=== PATIENT | male | born 1945 | race Caucasian/White ===

== ENCOUNTER 2023-06-30 07:31 | Day surgery (SDC) | payer MEDICARE, BC ==
[~2023-06-30] VITALS: Ht 177.8 cm; Wt 84.8 kg
[~2023-06-30 07:31] MED LIST: ASCORBIC ACID PO; CHOLECALCIFEROL PO; Cyclobenzaprine10 MG PO; DOCOSAHEXAENOIC ACID PO; FLONASE ALLERG9.9 M2; GENICIN500 M1 PO; HYDCHL25 PO; Lactated Ringer's 1,000 ML IV ONE; METAMUCIL POWD798 GM PO; Vitamin B-12250 MCG PO; propofoL 50 ML IV ONE
[2023-06-30] MEDS ORDERED: Lactated Ringer's 1,000 ML IV ONE (09:06)
[2023-06-30 10:33] VITALS: BP 103/59
== END 2023-06-30 10:10 | disposition home or self-care (01) ==
LOC: ORSCSDS 07:31
PROVIDERS: Surgery
PROC: 0DJD8ZZ Inspection of Lower Intestinal Tract, Via Natural or Artificial Opening Endoscopic (ICD-10-PCS; principal; 2023-06-30 09:15)
DX: R10.32 Left lower quadrant pain (principal); K57.30 Diverticulosis of large intestine without perforation or abscess without bleeding; R19.4 Change in bowel habit; I10 Essential (primary) hypertension; Z79.899 Other long term (current) drug therapy
CPT/HCPCS: J2704; J7120